=== PATIENT | female | born 1965 | race Caucasian/White ===

== ENCOUNTER 2024-02-27 08:21 | Day surgery (SDC) | payer BC ==
[~2024-02-27 08:21] MED LIST: Sodium Chloride 0.9% 10 ML Syringe FLUSH PRN; Sodium Chloride 0.9% 2.5 ML Syringe FLUSH PRN; Sodium Chloride 0.9% 20 ML SDV IV PRN
[2024-02-27] MEDS: Lactated Ringers 1,000 ML IV SCH (08:58)
[2024-02-27] MEDS ORDERED: Propofol 200 MG/20 ML SDV ONE (09:36)
[2024-02-27] MEDS ORDERED: Ketamine 500 mg/10 ML MDV ONE (09:36)
[2024-02-27] MEDS ORDERED: Lidocaine 2% 5 ML SDV ONE (10:36)
[2024-02-27] MEDS ORDERED: Esmolol 100 MG/10 ML SDV ONE (10:43)
[2024-02-27 12:16] VITALS: BP 136/78; PULSE 61
== END 2024-02-27 11:40 | disposition home or self-care (01) ==
LOC: MW.SDS 08:21
PROVIDERS: ATTEND Surgery
DX: K44.9 Diaphragmatic hernia without obstruction or gangrene (principal); E11.59 Type 2 diabetes mellitus with other circulatory complications; I15.2 Hypertension secondary to endocrine disorders; E78.00 Pure hypercholesterolemia, unspecified; Z79.899 Other long term (current) drug therapy
CPT/HCPCS: 43239; J2704; J3490; J7120; 00731